=== PATIENT | female | born 2000 | race Caucasian/White ===

== ENCOUNTER 2022-11-23 11:41 | Emergency (ER) | payer MEDICAID, OTHER ==
[~2022-11-23] VITALS: Ht 167.7 cm; Wt 74.3 kg
[2022-11-23 11:46] VITALS: BP 128/91
--- NOTE | 2022-11-23 12:16 | ED Cough/URI ---
General Chief Complaint: COVID19 Suspect/Confirmed Stated Complaint: COVID+; CHEST CONGESTION; LUNG PAIN Nursing Triage Note: Patient reports she began having headache, shortness of breath, cough, nasal congestion, and fatigue 10-11 days ago. She reports she tested positive for COVID-19 8 days ago. She states her symptoms are not getting any better. Source: patient Exam Limitations: no limitations History of Present Illness Date Seen by Provider: Nov 23, 2022 Time Seen by Provider: 12:00 Initial Comments Patient is a 22-year-old female who presents with nasal congestion rhinorrhea, purulent sinus drainage and productive cough 1 week ago after being diagnosed for COVID. Patient states her symptoms do not getting any better. She denies chest pain palpitation shortness of breath and wheezing. She does have a his tory of asthma but does not currently have an inhaler available to use. She is a non-smoker. No fever chills or sweats. No other acute symptoms Timing/Duration: other Severity/Quality: other Prior Episodes/Possible Cause: other Modifying Factors: Improves With Other Associated Symptoms: other Allergies and Home Medications Allergies Coded Allergies: latex (Verified Allergy, Unknown, 11/23/22) Patient Home Medication List Home Medication List Reviewed: Yes Review of Systems Review of Systems Constitutional: see HPI Respiratory: see HPI Gastrointestinal: see HPI Genitourinary: see HPI : No Musculoskeletal: see HPI Skin: see HPI Psychiatric/Neurological: See HPI Hematologic/Lymphatic: See HPI Immunological/Allergic: see HPI All Other Systems Reviewed Negative Unless Noted: No Past Ccnftdd-Hklshd-Gkjpnq Hx Patient Social History Tobacco Use?: No Substance use?: No Alcohol Use?: No Pt feels they are or have been: No Physical Exam Vital Signs - First Documented 11/23/22 11:46 Temp 36.8 Pulse 90 Resp 16 B/P (MAP) 128/91 (103) Pulse Ox 100 O2 Delivery Room Air Capillary Refill : Less Than 3 Seconds Height: '" Weight: lbs. oz. kg; 26.00 BMI Method: General Appearance: WD/WN, no apparent distress Eyes: Bilateral Eye Normal Inspection, Bilateral Eye PERRL, Bilateral Eye EOMI HEENT: PERRL/EOMI Neck: full range of motion Respiratory: normal breath sounds, no respiratory distress, no accessory muscle use Neurologic/Psychiatric: no motor/sensory deficits, alert, oriented x 3 Progress/Results/Core Measures Suspected Sepsis SIRS Temperature: Pulse: 90 Respiratory Rate: 16 Blood Pressure 128 /91 Mean: 103 Results/Orders My Orders Orders - KAITLYNN RANDHAWA DO Urine Bedside (11/23/22 12:08) Chest Pa/Lat (2 View) (11/23/22 12:08) Vital Signs/I&O 11/23/22 11/23/22 11:46 12:01 Temp 36.8 Pulse 90 Resp 16 B/P (MAP) 128/91 (103) Pulse Ox 100 O2 Delivery Room Air Room Air Capillary Refill : Less Than 3 Seconds Blood Pressure Mean: 103 Departure Communication (Admissions) Chest x-ray: No acute cardiopulmonary disease. Patient is a 22-year-old female history of asthma who is post COVID with clinical findings of bronchial pneumonia and early sinusitis without respiratory compromise current x-ray findings of lobar infiltrate. Recommendations are therapeutic and supportive care with PCP follow-up. We will refill albuterol inhaler. Return precautions reviewed. Patient verbalizes understanding agreement discharge instructions prior to departure. Impression Primary Impression: Bronchopneumonia Disposition: HOME, SELF-CARE Condition: Stable Departure-Patient Inst. Decision time for Depature: 12:21 Referrals: NO,LOCAL PHYSICIAN (PCP/Family) Primary Care Physician Patient Instructions: Pneumonia, Adult ED Add. Discharge Instructions: You were evaluated in the emergency department for sinus infection and productive cough. A chest x-ray was performed does not show evidence of widespread pneumonia. Please increase fluids, take Mucinex for cough, and Aarti pot to clear sinuses. Complete full course of antibiotics and use inhaler PCP in 5 to 7 days for reevaluation of symptoms persist. All discharge instructions reviewed with patient and/or family. Voiced understanding. Scripts Albuterol Sulfate (Proventil Hfa) 6.7 Gm Hfa.aer.ad 2 PUFF INH Q6H for SHORTNESS OF BREATH, #1 EACH Prov: KAITLYNN RANDHAWA DO 11/23/22 Guaifenesin/Pseudoephedrne HCl (Mucinex D ER 600-60 mg Tablet) 600 Mg-60 Mg Tab.er.12h 1 EACH PO BID, #18 TAB Prov: KAITLYNN RANDHAWA DO 11/23/22 Doxycycline Hyclate (Doxycycline Hyclate) 100 Mg Tablet 100 MG PO BID, #20 TAB 0 Refills Prov: KAITLYNN RANDHAWA DO 11/23/22 KAITLYNN RANDHAWA DO Nov 23, 2022 12:16
[2022-11-23] MEDS ORDERED: RT-ALBUINH INH (12:25)
[2022-11-23] MEDS ORDERED: GUAI-370 PO (12:25)
[2022-11-23] MEDS ORDERED: DOXY100T2 PO (12:25)
--- NOTE | 2022-11-23 12:33 | Diagnostic Imaging Report ---
Indication: Dyspnea and cough PA and lateral views of the chest are obtained. COMPARISON: No previous study is available for comparison at this time. FINDINGS: Heart size and pulmonary vasculature are within normal limits, and the lungs are clear, bilaterally. IMPRESSION: Unremarkable chest. Dictated by: Dictated on workstation # [id number]
== END 2022-11-23 12:28 | disposition home or self-care (01) ==
LOC: ER FS 11:46
DX: U07.1 COVID-19 (principal); J12.82 Pneumonia due to coronavirus disease 2019
CPT/HCPCS: 71046; 84703